=== PATIENT | female | born 2000 | race Caucasian/White ===

== ENCOUNTER 2020-10-06 01:03 | Emergency (ER) | payer OTHER ==
[2020-10-06] MEDS ORDERED: BACTRIM DS TAB1 EACH PO (03:33)
== END 2020-10-06 03:44 | disposition home or self-care (01) ==
LOC: ER1 01:03
DX: L03.116 Cellulitis of left lower limb (principal); J45.909 Unspecified asthma, uncomplicated; Z88.8 Allergy status to other drugs, medicaments and biological substances
CPT/HCPCS: 99283

== ENCOUNTER 2020-12-03 03:20 | Emergency (ER) | payer OTHER ==
[~2020-12-03 03:20] MED LIST: BACTRIM DS TAB1 EACH PO
[2020-12-03 05:46] LABS: HEMOGLOBIN 16.1 gm/dl (12.3-15.3); RED BLOOD COUNT 5.16 M/UL (4.00-5.10); WHITE BLOOD COUNT 17.8 K/UL (4.5-11.0)
[2020-12-03 06:02] LABS: BUN/CREATININE RATIO 10 (0-10)
== END 2020-12-03 10:08 | disposition home or self-care (01) ==
LOC: ER1 03:20
PROVIDERS: Family Medicine
DX: R07.81 Pleurodynia (principal); J45.909 Unspecified asthma, uncomplicated; Z87.891 Personal history of nicotine dependence; Z20.822 Contact with and (suspected) exposure to COVID-19
CPT/HCPCS: 71045; 80053; 81001; 83690; 84703; 85025; 85379; 87086; 99284; Q9967; U0002